=== PATIENT | male | born 1960 | race Caucasian/White ===

== ENCOUNTER 2018-11-08 15:36 | Emergency (ER) | payer MEDICARE, MEDICAID ==
[~2018-11-08] VITALS: Ht 182.9 cm; Wt 80.0 kg
[~2018-11-08 15:36] MED LIST: AMOXICILLIN/CL875 MG PO; AUGMENTIN875TAB PO; AVELOX400 MG OR; DOXYCYC MONO100 M1 PO; FLONASE NASAL50 MCG; FLORASTOR250 M1 PO; GLUCOTROL EXTE2.5 M1 PO; LEVAQUIN750 MG PO; LISINOPRIL10 MG PO; LORTAB 10 OR; MEDDOSEPAK PO; METFORMIN1000 MG PO; METFORMIN500 M1 PO; MUSCLE RELAXER; NORCO1 TA1 PO; PRAVASTATIN SOD10 MG PO; PREDNISONE10 MG PO; XANAX0.5 MG PO; ZITHROMAX250 MG PO; ZITHROMAX500 MG PO; [UNRECOGNIZED DRUG - OTHER]
[2018-11-08 17:24] VITALS: BP 147/95
== END 2018-11-08 17:31 | disposition home or self-care (01) ==
LOC: ED 15:36
DX: S20.212A Contusion of left front wall of thorax, initial encounter (principal); F17.200 Nicotine dependence, unspecified, uncomplicated; W19.XXXA Unspecified fall, initial encounter
CPT/HCPCS: J0131

== ENCOUNTER 2021-09-10 14:34 | Emergency (ER) | payer MEDICARE, MEDICAID ==
[~2021-09-10] VITALS: Ht 182.9 cm; Wt 93.1 kg
[2021-09-10] VITALS (8 sets, daily range): BP systolic 142–162; BP diastolic 72–90
[2021-09-10 15:07] LABS: HEMOGLOBIN 14.9 g/dl (14.0-18.0); IMMATURE GRANULOCYTES 0.5 % (0.0-5.0); MEAN CELL VOLUME 92.7 fL CALC (80.0-100.0); MEAN CORPUSCULAR HGB 29.4 pG CALC (26.0-32.0); MEAN CORPUSCULAR HGB CONC 31.7 g/dL CAL (32.0-36.0); NEUT# 11.42 thou/uL (1.82-7.42); RED BLOOD COUNT 5.07 mill/uL (4.70-6.10)
[2021-09-10 15:27] LABS: ALKALINE PHOSPHATASE 104 u/l (38-126); ANION GAP 15 (6-22 (CALC)); BILIRUBIN, TOTAL 0.4 mg/dL (0.0-1.4); BUN 16 mg/dL (9-20); BUN/CREATININE RATIO 14 (12-20 (CALC)); CARBON DIOXIDE 26 mmol/l (22-30); CHLORIDE 99 mmol/l (95-108); CREATININE 1.2 mg/dL (0.7-1.3); GFR > 60 ML/MIN (>=60 (CALC)); GFR FOR AFR.AMER. > 60 ML/MIN (>=60 (CALC)); POTASSIUM 4.8 mmol/l (3.5-5.1); SGOT/AST 15 u/l (17-59); SODIUM 135 mmol/l (137-146); TOTAL PROTEIN 7.8 g/dL (6.3-8.2)
[2021-09-10 16:52] LABS: URINE BILIRUBIN - DIPSTICK NEGATIVE (NEGATIVE); URINE BLOOD DIPSTICK TRACE-INTACT (NEGATIVE); URINE COLOR YELLOW; URINE GLUCOSE - DIPSTICK NEGATIVE (NEGATIVE); URINE KETONE NEGATIVE (NEGATIVE); URINE LEUK ESTERASE NEGATIVE (NEGATIVE); URINE PROTEIN - DIPSTICK 30 mg/dL (NEG-TRACE); URINE SPECIFIC GRAVITY 1.025; URINE UROBILINOGEN - DIPSTICK 0.2 E.U./dL (0.2)
[2021-09-10 17:10] LABS: URINE NITRITE - DIPSTICK NEGATIVE (Negative)
[2021-09-10 17:13] LABS: URINE RBC 0-2 RBC/hpf (0-5); URINE WBC 0-2 WBC/hpf (0-5)
[2021-09-11 00:13] VITALS: BP 142/78
== END 2021-09-11 00:14 ==
LOC: ED 14:34
PROVIDERS: Nurse Practitioner
DX: N12 Tubulo-interstitial nephritis, not specified as acute or chronic (principal); R91.8 Other nonspecific abnormal finding of lung field; E27.8 Other specified disorders of adrenal gland; R59.0 Localized enlarged lymph nodes; Z20.822 Contact with and (suspected) exposure to COVID-19
CPT/HCPCS: Q9967